=== PATIENT | female | born 1970 | race Hispanic/Latino ===

== ENCOUNTER 2016-07-22 11:21 | Emergency (ER) | payer SELFPAY ==
[2016-07-22 12:04] LABS: #Eosinphils 0.1 thou/uL (0.0-0.7); #Lymphocytes 0.8 thou/uL (1.20-3.40); #Monocytes 0.3 thou/uL (0.11-0.59); #Neutrophils 3.8 thou/uL (1.40-6.50); %Basophils 0.6 % (0.0-1.0); %Eosinophils 1.3 % (0.0-10.0); %Monocytes 5.7 % (0.0-10.0); Hematocrit 42.2 % (36.0-47.0); Mean Platelet Volume 6.3 fL (7.4-10.4); Red Blood Cell (RBC) Count 4.55 mill/uL (4.20-5.40)
[2016-07-22 12:06] LABS: PTT 26.4 SEC (22.9-36.1); Prothrombin Time 13.8 SEC (12.0-14.7)
[2016-07-22 12:16] LABS: ALT (SGPT) 13 U/L (0-55); AST (SGOT) 15 U/L (5-34); Alkaline Phosphatase 44 U/L (40-150); Anion Gap 12 mmol/L (10-20); BUN (Urea Nitrogen) 10 mg/dL (7.0-18.7); Bilirubin, Total 0.7 mg/dL (0.2-1.2); Calc. Creatinine Clearance 0 mL/min (70-130); Calcium 8.6 mg/dL (7.8-10.44); Carbon Dioxide 22 mmol/L (22-29); Chloride 110 mmol/L (98-107); Estimated GFR-MDRD Greater than 90; Globulin 3.2 g/dL (2.4-3.5)
--- NOTE | 2016-07-22 14:13 | ERRECORD ---
[facility] EMERGENCY RECORD HPI VAGINAL BLEEDING (13:09 DHAM) CHIEF COMPLAINT: Patient presents for evaluation of vaginal bleeding. HISTORIAN: History provided by patient, History provided by patient's family, son. LOCATION: Symptoms are localized, most severe in the lower abdomen. QUALITY: Bleeding quality described as dark blood, with clots, no tissue, Pads saturated in 24 hours: unsure. this morning was 5/hour for several hours, Pain is dull in nature, described as aching. SEVERITY: Current severity of pain rated as 0/10. TIME COURSE: Gradual onset of symptoms, 15, hours prior to arrival, Symptoms are worsening, increased blood flow this morning with bilat. lower abd pain. ASSOCIATED WITH: No associated chills, No associated constipation, No associated diarrhea, No associated fever, Associated with groin pain, No associated hematemesis, No associated hematuria, No associated loss of appetite. MODIFYING FACTORS: Patient confirmed not via serum HCG, based on test performed in the ED. EXACERBATED BY: Patient's condition exacerbated by upright position. RELIEVED BY: Patient's condition relieved by nothing, Patient's condition relieved by nothing because patient has not tried anything for relief. RISK FACTORS: Ectopic risk factors:, include history of tubal ligation. ROS (13:39 DHAM) CONSTITUTIONAL: Historian denies fever, denies night sweats, denies weakness. RESPIRATORY: Historian denies cough, denies shortness of breath, denies sputum, denies stridor. GI: Historian reports abdominal pain, denies diarrhea, denies hematochezia, denies melena, denies nausea, denies vomiting. GENITOURINARY FEMALE: Historian denies dysuria, denies frequency, denies hematuria, reports menorrhagia, reports vaginal bleeding. MUSCULOSKELETAL: Historian denies arthralgias, denies fall, denies injury. SKIN: Historian denies rash, denies skin changes. HEMO/LYMPHATIC: Historian denies abnormal blood clotting, denies easy bruising. ALLERGIC/IMMUNOLOGIC: Historian denies frequent infections, denies hives. PAST MEDICAL HISTORY (11:34 RHIC) MEDICAL HISTORY: Notes: ANEMIA. FEMALE SURGICAL HISTORY: Surgical history of tubal ligation, Notes: ~6 YEARS AGO. PSYCHIATRIC HISTORY: No previous psychiatric history. SOCIAL HISTORY: Patient denies alcohol use, Patient denies drug use, Patient has no smoking history. &a-1R&a+25V*p+0X*t8533F*c202B*c15G*c2P*p-0X&a-25V&a+1R Name: Jossie Rico : 1970 F46 MedRec: [id number] AcctNum: [id number] Prepared: Sat Jul 22, 2016 22:51 by Interface Page 1 of 3 pMD [facility] EMERGENCY RECORD KNOWN ALLERGIES No Known Drug Allergies CURRENT MEDICATIONS (11:32 RHIC) None VITAL SIGNS VITAL SIGNS: BP: 118/68, Pulse: 68, Resp: 18, Temp: 98.3 (Oral), Pain: 8, O2 sat: 98, Time: 07/22/2016 11:26. (11:26 RHIC) BP: 100/57, Pulse: 72, Resp: 18, Pain: 8, O2 sat: 99 on Room Air, Time: 07/22/2016 12:30. (12:30 AHOO) BP: 102/52, Pulse: 70, Resp: 18, Temp: 98.0 (Oral), Pain: 7-8, O2 sat: 99 on Room Air, Time: 07/22/2016 13:13. (13:13 AHOO) PHYSICAL EXAM CONSTITUTIONAL: Vital Signs Reviewed, Patient afebrile, Pulse normal, Blood pressure normal, Respiratory rate normal, Normal pulse oximetry, Patient appears non toxic, Patient appears, in moderate pain distress, Patient alert and oriented to person, place and time, Nursing notes reviewed. (13:40 DHAM) HEAD: Head exam included findings of head atraumatic, normocephalic. (13:40 DHAM) EYES: Eye exam included findings of eyelids normal to inspection, Pupils equally round and reactive to light, Extraocular muscles intact, Conjunctiva normal, Sclera normal. (13:40 DHAM) ENT: Ear exam normal, Nose exam normal, Pharynx exam normal, Uvula exam normal, Tonsil exam normal, Mouth exam normal, teeth normal. (13:40 DHAM) NECK: Neck exam included findings of normal range of motion, no meningeal signs. (13:40 DHAM) RESPIRATORY CHEST: Respiratory exam included findings of no respiratory distress, Breath sounds clear, No wheezing, No rales, No rhonchi. (13:40 DHAM) CARDIOVASCULAR: Cardiovascular exam included findings of heart rate regular rate and rhythm, Heart sounds normal, normal S1, normal S2, no murmurs, no rub, no gallop. (13:40 DHAM) ABDOMEN FEMALE: Abdominal exam included findings of abdomen nontender, Bowel sounds normal, Liver normal, Spleen normal, no distension, no mass, no pulsatile masses, no peritoneal signs, no rigidity, no guarding, no rebound. (13:40 DHAM) GENITOURINARY FEMALE: External genitalia normal, Genitourinary exam included findings of external genitalia normal, vaginal mucosa normal, no discharge. (13:43 DHAM) PELVIC: Pelvic exam findings:, Speculum exam abnormal, external os closed, bloody discharge present, dark venous blood noted in vault. moderate amount. no active bleeding noted for several minutes, Bimanual exam abnormal, Cervix not dilated, No cervical motion tenderness, No adnexal mass, Uterus bulky, Uterus tender, Uterus 8 weeks &a-1R&a+25V*p+0X*e8611Q*c202B*c15G*c2P*p-0X&a-25V&a+1R Name: Jossie Rico : 1970 F46 MedRec: [id number] AcctNum: [id number] Prepared: Sat Jul 22, 2016 22:51 by Interface Page 2 of 3 pMD [facility] EMERGENCY RECORD in size, Urethral exam normal, no blood at meatus, no lesions, no edema, no prolapse, Bladder exam normal, no distension, no tenderness, no masses, Exam findings include complaint of lower abdominal pain, Vaginal bleeding present, Escorted by Nayla Bonilla LVN. (13:43 DHAM) BACK: Back exam included findings of normal inspection, range of motion normal, no tenderness, no costovertebral angle tenderness. (13:40 DHAM) UPPER EXTREMITY: Upper extremity exam normal. (13:40 DHAM) LOWER EXTREMITY: Lower extremity exam normal. (13:40 DHAM) NEURO: O'Kean coma scale 15, Neuro exam findings include patient oriented to person, place and time, Speech normal, Gait normal, Memory normal, Cranial nerves intact. (13:40 DHAM) SKIN: Skin exam included findings of skin warm, dry, and normal in color, no rash, no ecchymosis. (13:40 DHAM) LYMPHATIC: Lymphatic exam normal. (13:40 DHAM) PSYCHIATRIC: Psychiatric exam included findings of patient oriented to person place and time, Normal affect, Judgment normal, Insight normal. (13:40 DHAM) PROBLEM LIST No recorded problems DIAGNOSIS (13:47 DHAM) FINAL: PRIMARY: Dysfunctional uterine bleeding (DUB). PRESCRIPTION (13:55 DHAM) medroxyPROGESTERone oral: TABLET : 10 mg : ORAL : Quantity: 1 Unit: tab(s) Route: ORAL Schedule: once a day (in the morning) Dispense: 10 Unit: tab(s) May substitute. Refills: No Refills . NOTES: sally pastille ahorita y cada manana por abraham lawler No refills. DISPOSITION PATIENT: Disposition Type: Discharge, Disposition: *Discharge Home. (13:47 DHAM) Patient left the department. (14:08 [facility]) Barnes: [facility]=DONOVAN Bonilla, October [facility]=MD Maggie, Juan [facility]=Erinn RN, Ada &a-1R&a+25V*p+0X*k9549N*c202B*c15G*c2P*p-0X&a-25V&a+1R Name: FranklinJossie Kauffman : 1970 F46 MedRec: [id number] AcctNum: [id number] Prepared: Vladimir Jul 22, 2016 22:51 by Interface Page 3 of 3 pMD MTDD
--- NOTE | 2016-07-22 14:19 | PICIS ---
[facility] EMERGENCY RECORD TRIAGE ([facility] Jul 22, 2016 11:31 RHIC) TRIAGE NOTES: VAGINAL BLEEDING ~5 PAD PER HOUR. BEGAN YESTERDAY. BLOOD CLOTS. SEVERE CRAMPING. ([facility] Jul 22, 2016 11:31 RHIC) PATIENT: NAME: Jossie Rico, AGE: 46, GENDER: female, : Sun1970, TIME OF GREET: Sat Jul 22, 2016 11:22, PREFERRED LANGUAGE: Arabic, ETHNICITY: or , ECODE BILLING MAP: [place], Zip Code: [address], KG WEIGHT: 52.16 (est.), PHONE: , , , PERSON ID: [id number], PCP: NONE. (Sat Jul 22, 2016 11:31 RHIC) PAYMENT: SJX Self Pay. (13:27) COMPLAINT: VAGINAL BLEEDING. ([facility] Jul 22, 2016 11:31 RHIC) ADMISSION: URGENCY: 3 Urgent, ADMISSION SOURCE: Home, TRANSPORT: CAR, BED: TRIAGE. ([facility] Jul 22, 2016 11:31 RHIC) ASSESSMENT: Assessment: LAST PERIOD WAS LIGHT. (11:34 RHIC) IMMUNIZATIONS: Flu vaccine not up to date, Tetanus not up to date. (11:34 RHIC) SIRS SCORING: Heart Rate 55-109 (0), Temp range 96.8-101.1 (0), respiratory rate 12-24 (0), Latest WBC 3-14.9 (0), Mental Status altered: no (0). (11:34 RHIC) TRIAGE SCREENING: Patient denies suicidal ideation, Patient denies presence of domestic violence. (11:34 RHIC) LMP: Last menstrual period: 07/21/2016. (11:34 RHIC) TREATMENTS IN PROGRESS: Treatments given Prehospital: NONE. (11:34 RHIC) PROVIDERS: TRIAGE NURSE: Ada Plasencia RN. (Sat Jul 22, 2016 11:31 RHIC) VITAL SIGNS: BP 118/68, Pulse 68, Resp 18, Temp 98.3, (Oral), Pain 8, O2 Sat 98, Time 07/22/2016 11:26. (11:26 RHIC) KNOWN ALLERGIES No Known Drug Allergies CURRENT MEDICATIONS (11:32 RHIC) None VITAL SIGNS VITAL SIGNS: BP: 118/68, Pulse: 68, Resp: 18, Temp: 98.3 (Oral), Pain: 8, O2 sat: 98, Time: 07/22/2016 11:26. (11:26 RHIC) BP: 100/57, Pulse: 72, Resp: 18, Pain: 8, O2 sat: 99 on Room Air, Time: 07/22/2016 12:30. (12:30 AHOO) BP: 102/52, Pulse: 70, Resp: 18, Temp: 98.0 (Oral), Pain: 7-8, O2 sat: 99 on Room Air, Time: 07/22/2016 13:13. (13:13 AHOO) NURSING PROCEDURE: DISCHARGE NOTE (14:00 AHOO) DISCHARGE: Patient discharged to home, ambulating without assistance, family driving, accompanied by other family member, Summary of Care printed/ provided, Transition record given to patient, Discharge instructions given to patient, Discharge &a-1R&a+25V*p+0X*d9834G*c202B*c15G*c2P*p-0X&a-25V&a+1R Name: Franklinbucky Parra Jossie E : 1970 F46 MedRec: [id number] AcctNum: [id number] Prepared: Sat Jul 22, 2016 22:57 by Interface Page 1 of 7 pMD [facility] EMERGENCY RECORD instructions given to SON, Prescriptions given and instructions on side effects given, Above person(s) verbalized understanding of discharge instructions and follow-up care, Notes: DR SWAN DISCHARGED THE PT IN [place] AND PT SON AT BEDSIDE TO [facility]. NURSING PROCEDURE: NURSE NOTES (13:43 AHOO) NURSES NOTES: Notes: ASSISTED DR SWAN WITH PELVIC EXAM WAS AT THE BEDSIDE AND IN ROOM THE ENTIRE TIME. ORDER DETAILS Order Name: CBC with Differential, Status: Active, Time: 11:37 07/22/2016, User: MANNIE, - Ordered for: MD Swan Darren, - Entered by: MD Swan Darren - Sat Jul 22, 2016 11:37, - Quantity: 1, Order Name: Comprehensive Metabolic Panel, Status: Active, Time: 11:37 07/22/2016, User: MANNIE, - Ordered for: MD Swan Darren, - Entered by: MD Swan Darren - Sat Jul 22, 2016 11:37, - Quantity: 1, Order Name: Test, Serum (BHCG), Status: Active, Time: 11:44 07/22/2016, User: MANNIE, - Ordered for: MD Swan Darren, - Entered by: MD Swan Darren - Sat Jul 22, 2016 11:44, - Quantity: 1, Order Name: Test, Serum (BHCG), Status: Active, Time: 11:46 07/22/2016, User: DUANE, - Ordered for: MD Swan Darren, - Entered by: DONOVAN Bonilla, October - Sat Jul 22, 2016 11:46, - Quantity: 1, Order Name: Test, Urine (BHCG), Status: Active, Time: 11:37 07/22/2016, User: MANNIE, - Ordered for: MD Swan Darren, - Entered by: MD Swan Darren - Sat Jul 22, 2016 11:37, - Quantity: 1, Order Name: Protime with INR, Status: Active, Time: 11:37 07/22/2016, User: MANNIE, - Ordered for: MD Swan Darren, - Entered by: MD Swan Darren - Sat Jul 22, 2016 11:37, - Quantity: 1, Order Name: PTT, Status: Active, Time: 11:37 07/22/2016, User: MANNIE, - Ordered for: MD Swan Darren, - Entered by: MD Swan Darren - Sat Jul 22, 2016 11:37, - Quantity: 1. HPI VAGINAL BLEEDING (13:09 MANNIE) CHIEF COMPLAINT: Patient presents for evaluation of vaginal bleeding. HISTORIAN: History provided by patient, &a-1R&a+25V*p+0X*v2431P*c202B*c15G*c2P*p-0X&a-25V&a+1R Name: Jossie Rico : 1970 F46 MedRec: [id number] AcctNum: [id number] Prepared: Sat Jul 22, 2016 22:57 by Interface Page 2 of 7 D [facility] EMERGENCY RECORD History provided by patient's family, son. LOCATION: Symptoms are localized, most severe in the lower abdomen. QUALITY: Bleeding quality described as dark blood, with clots, no tissue, Pads saturated in 24 hours: unsure. this morning was 5/hour for several hours, Pain is dull in nature, described as aching. SEVERITY: Current severity of pain rated as 0/10. TIME COURSE: Gradual onset of symptoms, 15, hours prior to arrival, Symptoms are worsening, increased blood flow this morning with bilat. lower abd pain. ASSOCIATED WITH: No associated chills, No associated constipation, No associated diarrhea, No associated fever, Associated with groin pain, No associated hematemesis, No associated hematuria, No associated loss of appetite. MODIFYING FACTORS: Patient confirmed not via serum HCG, based on test performed in the ED. EXACERBATED BY: Patient's condition exacerbated by upright position. RELIEVED BY: Patient's condition relieved by nothing, Patient's condition relieved by nothing because patient has not tried anything for relief. RISK FACTORS: Ectopic risk factors:, include history of tubal ligation. ROS (13:39 DHA) CONSTITUTIONAL: Historian denies fever, denies night sweats, denies weakness. RESPIRATORY: Historian denies cough, denies shortness of breath, denies sputum, denies stridor. GI: Historian reports abdominal pain, denies diarrhea, denies hematochezia, denies melena, denies nausea, denies vomiting. GENITOURINARY FEMALE: Historian denies dysuria, denies frequency, denies hematuria, reports menorrhagia, reports vaginal bleeding. MUSCULOSKELETAL: Historian denies arthralgias, denies fall, denies injury. SKIN: Historian denies rash, denies skin changes. HEMO/LYMPHATIC: Historian denies abnormal blood clotting, denies easy bruising. ALLERGIC/IMMUNOLOGIC: Historian denies frequent infections, denies hives. PAST MEDICAL HISTORY (11:34 RHIC) MEDICAL HISTORY: Notes: ANEMIA. FEMALE SURGICAL HISTORY: Surgical history of tubal ligation, Notes: ~6 YEARS AGO. PSYCHIATRIC HISTORY: No previous psychiatric history. SOCIAL HISTORY: Patient denies alcohol use, Patient denies drug use, Patient has no smoking history. PHYSICAL EXAM CONSTITUTIONAL: Vital Signs Reviewed, Patient afebrile, Pulse &a-1R&a+25V*p+0X*i8494Q*c202B*c15G*c2P*p-0X&a-25V&a+1R Name: Jossie Rico : 1970 F46 MedRec: [id number] AcctNum: [id number] Prepared: Sat Jul 22, 2016 22:57 by Interface Page 3 of 7 pMD [facility] EMERGENCY RECORD normal, Blood pressure normal, Respiratory rate normal, Normal pulse oximetry, Patient appears non toxic, Patient appears, in moderate pain distress, Patient alert and oriented to person, place and time, Nursing notes reviewed. (13:40 DHAM) HEAD: Head exam included findings of head atraumatic, normocephalic. (13:40 DHAM) EYES: Eye exam included findings of eyelids normal to inspection, Pupils equally round and reactive to light, Extraocular muscles intact, Conjunctiva normal, Sclera normal. (13:40 DHAM) ENT: Ear exam normal, Nose exam normal, Pharynx exam normal, Uvula exam normal, Tonsil exam normal, Mouth exam normal, teeth normal. (13:40 DHAM) NECK: Neck exam included findings of normal range of motion, no meningeal signs. (13:40 DHAM) RESPIRATORY CHEST: Respiratory exam included findings of no respiratory distress, Breath sounds clear, No wheezing, No rales, No rhonchi. (13:40 DHAM) CARDIOVASCULAR: Cardiovascular exam included findings of heart rate regular rate and rhythm, Heart sounds normal, normal S1, normal S2, no murmurs, no rub, no gallop. (13:40 DHAM) ABDOMEN FEMALE: Abdominal exam included findings of abdomen nontender, Bowel sounds normal, Liver normal, Spleen normal, no distension, no mass, no pulsatile masses, no peritoneal signs, no rigidity, no guarding, no rebound. (13:40 DHAM) GENITOURINARY FEMALE: External genitalia normal, Genitourinary exam included findings of external genitalia normal, vaginal mucosa normal, no discharge. (13:43 DHAM) PELVIC: Pelvic exam findings:, Speculum exam abnormal, external os closed, bloody discharge present, dark venous blood noted in vault. moderate amount. no active bleeding noted for several minutes, Bimanual exam abnormal, Cervix not dilated, No cervical motion tenderness, No adnexal mass, Uterus bulky, Uterus tender, Uterus 8 weeks in size, Urethral exam normal, no blood at meatus, no lesions, no edema, no prolapse, Bladder exam normal, no distension, no tenderness, no masses, Exam findings include complaint of lower abdominal pain, Vaginal bleeding present, Escorted by Nayla Bonilla LVN. (13:43 DHAM) BACK: Back exam included findings of normal inspection, range of motion normal, no tenderness, no costovertebral angle tenderness. (13:40 DHAM) UPPER EXTREMITY: Upper extremity exam normal. (13:40 DHAM) LOWER EXTREMITY: Lower extremity exam normal. (13:40 DHAM) NEURO: Nathan coma scale 15, Neuro exam findings include patient oriented to person, place and time, Speech normal, Gait normal, Memory normal, Cranial nerves intact. (13:40 DHAM) SKIN: Skin exam included findings of skin warm, dry, and normal in color, no rash, no ecchymosis. (13:40 DHAM) LYMPHATIC: Lymphatic exam normal. (13:40 DHAM) PSYCHIATRIC: Psychiatric exam included findings of patient &a-1R&a+25V*p+0X*q9381Q*c202B*c15G*c2P*p-0X&a-25V&a+1R Name: Jossie Rico : 1970 F46 MedRec: [id number] AcctNum: [id number] Prepared: Sat Jul 22, 2016 22:57 by Interface Page 4 of 7 pMD [facility] EMERGENCY RECORD oriented to person place and time, Normal affect, Judgment normal, Insight normal. (13:40 DHAM) EVENTS TRANSFER: Triage to Emergency Triage. (Sat Jul 22, 2016 11:31 RHIC) Emergency Triage to Emergency Room -05. (11:36 AHOO) Removed from Emergency Emergency Room -05. (14:08 AHOO) O2SAT INTERPRETATION (13:47 DHAM) O2SAT: Single pulse oximetry, Oxygen saturation 99%, on room air, Oxygen saturation interpretation: Normal, No intervention required. PROBLEM LIST No recorded problems DIAGNOSIS (13:47 DHAM) FINAL: PRIMARY: Dysfunctional uterine bleeding (DUB). DISPOSITION PATIENT: Disposition Type: Discharge, Disposition: *Discharge Home. (13:47 DHAM) Patient left the department. (14:08 AHOO) INSTRUCTION (13:57 DHAM) DISCHARGE: DYSFUNCTIONAL UTERINE BLEEDING. SPECIAL: Fabby Gatorade frequentamente a hoy Regresa si usted esta mariada cukerry levanta o otra cosa que te preocupe Visita con white doctor, gynocologia temprano. PRESCRIPTION (13:55 DHAM) medroxyPROGESTERone oral: TABLET : 10 mg : ORAL : Quantity: 1 Unit: tab(s) Route: ORAL Schedule: once a day (in the morning) Dispense: 10 Unit: tab(s) May substitute. Refills: No Refills . NOTES: sally pastille ahorita y cada manana por abraham lawler No refills. IMAGING (14:05 AHOO) *DISCHARGE INSTRUCTIONS RECEIPT: Image captured from scanner. *SUPPLY CHARGE SHEET: Image captured from scanner. ADMIN (22:50 DHAM) DIGITAL SIGNATURE: MD Swan Darren. RESULTS (12:35 DHAM) LABORATORY: Test, Serum (BHCG) Collection DT: Sat Jul 22, 2016 11:59, BHCG - Serum NEGATIVE , Range (NEGATIVE), Method of sensitivity- &a-1R&a+25V*p+0X*j6317T*c202B*c15G*c2P*p-0X&a-25V&a+1R Name: Jossie Rico : 1970 F46 MedRec: [id number] AcctNum: [id number] Prepared: Sat Jul 22, 2016 22:57 by Interface Page 5 of 7 pMD [facility] EMERGENCY RECORD Indeterminant: results should be repeated, after 48 hours. Positive: results may be detected as early as 4-5 days before a first missed menses. Elimination of BHCG-, Elimination following first trimester D&C: 29-44 Days , Elimination following term : 8-24 Days . Comprehensive Metabolic Panel Collection DT: Sat Jul 22, 2016 11:59, Sodium 140 mmol/L, Range (136-145), Potassium 3.9 mmol/L, Range (3.5-5.1), *Chloride 110 - H mmol/L, Range (98-107), Carbon Dioxide 22 mmol/L, Range (22-29), Anion Gap 12 mmol/L, Range (10-20), BUN (Urea Nitrogen) 10 mg/dL, Range (7.0-18.7), Creatinine 0.63 mg/dL, Range (0.6-1.1), Estimated GFR-MDRD Greater than 90 , Reference Range for Estimated GFR: Greater than 90, mL/min/1.73 m2 NOTE: The MDRD equation has not been validated for use, with the elderly (over 70 years of age), women, patients with, serious comorbid condition or persons with extremes of body size, muscle, mass, or nutritional status. , Glucose 86 mg/dL, Range (70-105), Calcium 8.6 mg/dL, Range (7.8-10.44), Bilirubin, Total 0.7 mg/dL, Range (0.2-1.2), Protein, Total 7.0 g/dL, Range (6.0-8.3), NOTE: Plasma values are generally 0.3 to 0.5 g/dL higher than serum values, due to the presence of fibrinogen. , Albumin 3.8 g/dL, Range (3.5-5.0), Globulin 3.2 g/dL, Range (2.4-3.5), Alb/Glob Ratio 1.2 g/dL, Range (1.2-2.2), Alkaline Phosphatase 44 U/L, Range (40-150), AST (SGOT) 15 U/L, Range (5-34), ALT (SGPT) 13 U/L, Range (0-55). PTT Collection DT: Sat Jul 22, 2016 11:59, See comment below , Anticoagulant? NONE Medical Necessity SUSPECT COAGULOPATHY , PTT 26.4 SEC, Range (22.9-36.1). Protime with INR Collection DT: Sat Jul 22, 2016 11:59, See comment below , Anticoagulant? NONE Medical Necessity SUSPECT COAGULOPATHY , Prothrombin Time 13.8 SEC, Range (12.0-14.7), INR-International Normal Ratio 1.0 , ATTENTION: READ CAREFULLY , The, recommended therapeutic ranges for oral anticoagulant &a-1R&a+25V*p+0X*l4458F*c202B*c15G*c2P*p-0X&a-25V&a+1R Name: Jossie Rico : 1970 F46 MedRec: [id number] AcctNum: [id number] Prepared: [facility] Jul 22, 2016 22:57 by Interface Page 6 of 7 pMD [facility] EMERGENCY RECORD treatments are: , , Low Intensity: 1.5 - 2.0 Moderate Intensity: 2.0, - 3.0 High Intensity (1): 2.5 - 3.5 High, Intensity (2): 3.0 - 4.0 CRITICAL: >, 4.0 . CBC with Differential Collection DT: [facility] Jul 22, 2016 11:59, White Blood Cell (WBC) Count 5.0 thou/uL, Range (4.8-10.8), Red Blood Cell (RBC) Count 4.55 mill/uL, Range (4.20-5.40), Hemoglobin 13.7 g/dL, Range (12.0-16.0), Hematocrit 42.2 %, Range (36.0-47.0), Mean Corpuscular Volume 92.9 fl, Range (81.0-99.0), Mean Corpuscular Hemoglobin 30.1 pg, Range (27.0-31.0), Mean Corpuscular HGB CONC 32.4 g/dL, Range (32.0-36.0), RBC Distribution Width 11.6 %, Range (11.5-14.5), Platelet Count 211 thou/uL, Range (130-400), *Mean Platelet Volume 6.3 - L fL, Range (7.4-10.4), *%Neutrophils 75.7 - H %, Range (42.0-75.0), *%Lymphocytes 16.7 - L %, Range (21.0-51.0), %Monocytes 5.7 %, Range (0.0-10.0), %Eosinophils 1.3 %, Range (0.0-10.0), %Basophils 0.6 %, Range (0.0-1.0), #Neutrophils 3.8 thou/uL, Range (1.40-6.50), *#Lymphocytes 0.8 - L thou/uL, Range (1.20-3.40), #Monocytes 0.3 thou/uL, Range (0.11-0.59), #Eosinphils 0.1 thou/uL, Range (0.0-0.7), #Basophils 0.0 thou/uL, Range (0.0-0.2). Barnes: [facility]=DONOVAN Bonilla, October DHAM=MD Maggie, Juan RHIC=INDIA Plasencia, Ada &a-1R&a+25V*p+0X*t6068E*c202B*c15G*c2P*p-0X&a-25V&a+1R Name: Jossie Rico : 1970 F46 MedRec: [id number] AcctNum: [id number] Prepared: Vladimir Jul 22, 2016 22:57 by Interface Page 7 of 7 pMD MTDD
== END 2016-07-22 14:00 | disposition home or self-care (01) ==
LOC: BURERS 11:21
DX: N93.8 Other specified abnormal uterine and vaginal bleeding (principal); D64.9 Anemia, unspecified
CPT/HCPCS: 36415; 80053; 84703; 85025; 85610; 85730; 99284

== ENCOUNTER 2020-04-26 16:55 | Emergency (ER) | payer OTHER, SELFPAY ==
[2020-04-26] MEDS ORDERED: Acetaminophen 500 MG TAB ONE (17:42)
[2020-04-26] MEDS ORDERED: Ondansetron ODT 4 MG TAB ONE (17:42)
[2020-04-27 13:04] LABS: SARS-CoV-2 MS2 Positive; SARS-CoV-2 N Gene Positive; SARS-CoV-2 S Gene Positive; SARS-CoV-2 by NAA DETECTED (NotDetected); SARS-CoV-2 orf1ab Positive
== END 2020-04-26 18:22 | disposition home or self-care (01) ==
LOC: BURERS 16:55
DX: U07.1 COVID-19 (principal); R19.7 Diarrhea, unspecified; R11.2 Nausea with vomiting, unspecified; D64.9 Anemia, unspecified
CPT/HCPCS: 87635; 87804; 99284; Q0162; U0003

== ENCOUNTER 2022-02-09 10:27 | Emergency (ER) | payer SELFPAY ==
[2022-02-09] MEDS ORDERED: Iopamidol 370 76% 100 ML VIAL FS ONE (10:28)
[2022-02-09 10:49] LABS: #Lymphocytes 1.5 thou/uL (1.20-3.40); #Monocytes 0.2 thou/uL (0.11-0.59); %Basophils 0.6 % (0.0-1.0); %Eosinophils 0.7 % (0.0-10.0); %Lymphocytes 31.1 % (21.0-51.0); %Monocytes 4.2 % (0.0-10.0); %Neutrophils 63.4 % (42.0-75.0); Hemoglobin 14.3 g/dL (12.0-16.0); Mean Corpuscular HGB CONC 33.4 g/dL (32.0-36.0); Mean Corpuscular Hemoglobin 29.9 pg (27.0-31.0); Mean Corpuscular Volume 89.7 fL (78.0-98.0); Mean Platelet Volume 5.9 fL (7.4-10.4); Platelet Count 235 thou/uL (130-400); RBC Distribution Width 12.3 % (11.5-14.5); Red Blood Cell (RBC) Count 4.77 mill/uL (4.20-5.40); White Blood Cell (WBC) Count 4.7 thou/uL (4.8-10.8)
[2022-02-09 10:52] LABS: INR-International Normal Ratio 0.9; Prothrombin Time 12.4 sec (12.0-14.7)
[2022-02-09 10:53] LABS: PTT 27.5 sec (22.9-36.1)
[2022-02-09] MEDS ORDERED: Tenecteplase 50 MG - STEMI KIT ONE (11:00)
[2022-02-09 11:03] LABS: ALT (SGPT) 12 U/L (8-55); AST (SGOT) 14 U/L (5-34); Albumin 4.2 g/dL (3.5-5.0); Alkaline Phosphatase 66 U/L (40-110); Anion Gap 12 mmol/L (10-20); BUN (Urea Nitrogen) 16 mg/dL (7.0-18.7); Bilirubin, Total 0.5 mg/dL (0.2-1.2); CK (CPK) 106 U/L (29-168); Calc. Creatinine Clearance 0 mL/min (70-130); Calcium 9.4 mg/dL (7.8-10.44); Carbon Dioxide 26 mmol/L (22-29); Chloride 108 mmol/L (98-107); Estimated GFR 106; Globulin 3.2 g/dL (2.4-3.5); Glucose 123 mg/dL (70-105); Potassium 3.6 mmol/L (3.5-5.1); Protein, Total 7.4 g/dL (6.0-8.3); Sodium 142 mmol/L (136-145)
[2022-02-09] MEDS ORDERED: Aspirin Chewable 81 MG TAB ONE (11:56)
[2022-02-09 12:47] LABS: Amphetamine Not Detected (NotDetected); Barbiturates Screen Not Detected (NotDetected); Benzodiazepine Screen Not Detected (NotDetected); Cocaine Metabolite Screen Not Detected (NotDetected); Medtox Control Line Valid? VALID (VALID); Methadone Not Detected (NotDetected); Methamphetamine Not Detected (NotDetected); Opiate Screen Not Detected (NotDetected); Oxycodone Screen Not Detected (NotDetected); Phencyclidine (PCP) Not Detected (NotDetected); THC/Cannabinoid Screen Not Detected (NotDetected); Tricyclic Screen Not Detected (NotDetected)
[2022-02-09] MEDS ORDERED: Nitroglycerin 2% Ointment 1 INCH/1 GM Packet ONE (13:38)
[2022-02-09] MEDS ORDERED: Acetaminophen 500 MG TAB ONE (13:45)
== END 2022-02-09 16:38 ==
LOC: BURERS 10:27
DX: R20.2 Paresthesia of skin (principal); R07.9 Chest pain, unspecified; D64.9 Anemia, unspecified
CPT/HCPCS: 36415; 36416; 70450; 70496; 70498; 71045; 80053; 80306; 82550; 84484; 85025; 85610; 85730; 93005; 96360; J3101; Q9967

== ENCOUNTER 2023-05-06 19:08 | Emergency (ER) | payer SELFPAY ==
[2023-05-06] MEDS ORDERED: diphenhydrAMINE 50 MG/ML VIAL ONE (19:51)
[2023-05-06] MEDS ORDERED: Metoclopramide HCl 10 MG/2 ML VIAL ONE (19:51)
[2023-05-06 20:00] LABS: #Eosinphils 0.1 thou/uL (0.0-0.7); #Lymphocytes 1.4 thou/uL (1.20-3.40); #Monocytes 0.3 thou/uL (0.11-0.59); #Neutrophils 2.9 thou/uL (1.40-6.50); %Basophils 0.8 % (0.0-1.0); %Eosinophils 1.5 % (0.0-10.0); %Lymphocytes 30.2 % (21.0-51.0); %Monocytes 5.8 % (0.0-10.0); %Neutrophils 61.8 % (42.0-75.0); Hemoglobin 14.8 g/dL (12.0-16.0); Mean Corpuscular HGB CONC 33.6 g/dL (32.0-36.0); Mean Corpuscular Hemoglobin 30.9 pg (27.0-31.0); Mean Corpuscular Volume 92.1 fl (78.0-98.0); Mean Platelet Volume 7.2 fL (7.4-10.4); Platelet Count 254 10x3/uL (130-400); RBC Distribution Width 11.6 % (11.5-14.5); Red Blood Cell (RBC) Count 4.78 mill/uL (4.20-5.40); White Blood Cell (WBC) Count 4.7 10x3/uL (4.8-10.8)
[2023-05-06 20:15] LABS: INR-International Normal Ratio 0.8; Prothrombin Time 11.7 sec (12.0-14.7)
[2023-05-06 20:25] LABS: ALT (SGPT) 25 U/L (8-55); AST (SGOT) 21 U/L (5-34); Albumin 4.4 g/dL (3.5-5.0); Alkaline Phosphatase 64 U/L (40-110); Anion Gap 15 mmol/L (10-20); BUN (Urea Nitrogen) 21 mg/dL (9.8-20.1); Bilirubin, Total 0.3 mg/dL (0.2-1.2); Calc. Creatinine Clearance 0 mL/min (70-130); Calcium 9.3 mg/dL (7.8-10.44); Carbon Dioxide 23 mmol/L (22-29); Chloride 107 mmol/L (98-107); Estimated GFR 105; Globulin 3.8 g/dL (2.4-3.5); Glucose 111 mg/dL (70-105); Potassium 3.9 mmol/L (3.5-5.1); Protein, Total 8.2 g/dL (6.0-8.3); Sodium 141 mmol/L (136-145)
[2023-05-06] MEDS ORDERED: Aspirin Chewable 81 MG TAB ONE (20:25)
[2023-05-06] MEDS ORDERED: Tetracaine 0.5% PF 4 ML BOT ONE (20:54)
== END 2023-05-06 21:45 | disposition short-term general hospital (02) ==
LOC: BURERS 19:08
DX: H54.61 Unqualified visual loss, right eye, normal vision left eye (principal); R51.9 Headache, unspecified
CPT/HCPCS: 70450; 80053; 84702; 85025; 85610; 96374; 96375; J1200; J2765